=== PATIENT | male | born 1945 | race Caucasian/White ===

== ENCOUNTER 2024-01-10 12:33 | Emergency (ER) | payer OTHER, SELFPAY ==
[2024-01-10 12:37] VITALS: BP 127/88
--- NOTE | 2024-01-10 13:42 | ED.MUSCINJ ---
HPI-Injury
General
Chief Complaint: Fall
Source: patient
Exam Limitations: none
Time Seen by Provider: 01/10/24 13:36
History of Present Illness-Injury
Initial Injury comments:
78-year-old male presents with pain and swelling to the lateral left leg he sustained today. He fell getting out of his car. He notes hematoma to the lateral leg. Denies ankle or knee pain. He is uncertain of his medications but he does not
think he is on a blood thinner. No other complaints
Phy Exam
Physical Exam
Physical Exam:
General: Well-appearing male no acute distress
Musculoskeletal exam: Hematoma noted to left anterior lateral calf. This is tender but skin is soft compartments are soft good range of motion left ankle and knee
Vascular: 2+ dorsalis pedis pulse left foot
Injury Course
Orders/Labs/Results
Orders:
Orders
01/10/24 13:41
CR Leg Tibia/fibula Left 2 Vw Urgent
Comment:
Reason For Exam: fall, swelling
MDM/Problems Addressed
Differential Diagnosis Includes:
Pain and swelling left lateral leg after fall. Consider hematoma versus fracture. No evidence of compartment syndrome. X-rays pending
*Critical Care Note
Total Time (30-74mins, 75-104mins- exclusive of procedures): Not Applicable
Update Note
Update Note:
X-rays left leg negative for fracture. Suspect hematoma. No sign of compartment syndrome. Skin is soft. Recommended elevation and ice. Stable for discharge
ED Attending Note
-
Portions of this chart may have been created with voice recognition software.� Occasional wrong word or��sound alike� substitutions may have occurred due to the inherent limitations of voice recognition software.
Discharge Plan
Departure
Patient Disposition: Home (Routine Discharge)
Date of Disposition: 01/10/24
Time of Disposition: 14:47
Patient with high blood pressure during this ER visit?: No
Discharge Problem:
Hematoma
Instructions: Hematoma
Referrals:
Jean Marie Brian MD [Family Provider] -
Activity Restrictions/Additional Instructions:
Elevate for swelling. Use ice. Return if worse otherwise follow-up with your doctor. You may use Tylenol if needed for pain
Interventions
Interventions:
*Risk Screen - Suicide Last Done: 01/10/24 12:40
*Neglect/Abuse Screening Last Done: 01/10/24 12:40
ED-Musculoskeletal Assessment Last Done: 01/10/24 14:02
ED- Neurological Assessment Last Done: 01/10/24 14:01
Discharge Date and Time
Print Language: GRENADIAN
== END 2024-01-10 15:02 | disposition home or self-care (01) ==
LOC: EMR 12:33
PROVIDERS: EMERGENCY PHYSICIAN Student in an Organized Health Care Education/Training Program; FAMILY PHYSICIAN Internal Medicine
DX: S80.12XA Contusion of left lower leg, initial encounter (principal); W19.XXXA Unspecified fall, initial encounter
CPT/HCPCS: 99283; 73590